=== PATIENT | male | born 1970 | race African-American/Black ===

== ENCOUNTER 2018-11-19 15:50 | Emergency (ER) | payer SELFPAY ==
[2018-11-19] MEDS ORDERED: LISI-362 PO (15:59)
[2018-11-19] MEDS ORDERED: cloNIDine HCL 0.1 MG TAB PO ONE ×2 (16:00→16:05)
--- NOTE | 2018-11-19 16:05 | ER Report ---
History and Physical Time Seen By MD: 16:04 Hx. of Stated Complaint: high blood pressure at school clinic. not taking lisinipril he is prescribed HPI/ROS CHIEF COMPLAINT: High blood pressure HISTORY OF PRESENT ILLNESS: 48-year-old male presents to emergency Department today with complaint of high blood pressure. Patient is currently on lisinopril for which she decided to stopping his medication approx imately a month ago and noticed blood pressures be 220/126 had taken multiple times to clinic on-camp[place] were is a assistant softball coach at the [employer] and determined to come here for emergent evaluation. Patient denies chest pain shortness of breath nausea vomiting diarrhea fever chills when asked why he stopped he said this didn't feel like taking it anymore. Patient has no additional complaints at this time REVIEW OF SYSTEMS: Respiratory: No cough, no dyspnea. Cardiovascular: No chest pain, no palpitations. Gastrointestinal: No vomiting, no abdominal pain. Musculoskeletal: No back pain. Remainder of the 14 system rev: Yes Allergies: Coded Allergies: No Known Drug Allergies (Unverified , 11/19/18) Home Meds Reported Medications Lisinopril (LISINOPRIL) 10 Mg Tablet, 10 MG PO QDAY, TAB 11/19/18 Reviewed Nurses Notes: Yes Old Medical Records Reviewed: Yes Constitutional Vital Sign - Last 24 Hours 11/19/18 11/19/18 15:54 17:33 Temp 97.7 Pulse 79 Resp 20 B/P (MAP) 206/129 155/111 (126) Pulse Ox 93 O2 Delivery Room Air Physical Exam General Appearance: [The patient is alert, has no immediate need for airway protection and no current signs of toxicity.] [ ] Eyes: Pupils equal and round no injection. Respiratory: Chest is non tender, lungs are clear to auscultation. Cardiac: regular rate and rhythm [ ] Gastrointestinal: Abdomen is soft and non tender, no masses, bowel sounds normal. Musculoskeletal: Neck: Neck is supple and non tender. Extremities have full range of motion and are non tender. Skin: No rashes or lesions. [ ] DIFFERENTIAL DIAGNOSIS: After history and physical exam differential diagnosis was considered for hypertension hypertensive urgency hypertensive emergency hypertensive crisis medical noncompliance Medical Decision Making Data Points Result Diagram: 11/19/18 1600 11/19/18 1600 Laboratory Hematology Test 11/19/18 16:00 Red Blood Count 5.03 M/uL (4.00-5.60) Mean Corpuscular Volume 91.5 fL (80.0-96.0) Mean Corpuscular Hemoglobin 31.1 pg (26.0-33.0) Mean Corpuscular Hemoglobin Concent 34.0 g/dL (32.0-36.0) Red Cell Distribution Width 13.9 % (11.5-14.5) Mean Platelet Volume 9.1 fL (7.2-11.1) Neutrophils (%) (Auto) 61.7 % (39.4-72.5) Lymphocytes (%) (Auto) 26.8 % (17.6-49.6) Monocytes (%) (Auto) 9.7 % (4.1-12.4) Eosinophils (%) (Auto) 0.9 % (0.4-6.7) Basophils (%) (Auto) 0.9 % (0.3-1.4) Nucleated RBC Relative Count (auto) 0.1 /100WBC Neutrophils # (Auto) 6.4 K/uL (2.0-7.4) Lymphocytes # (Auto) 2.8 K/uL (1.3-3.6) Monocytes # (Auto) 1.0 K/uL (0.3-1.0) Eosinophils # (Auto) 0.1 K/uL (0.0-0.5) Basophils # (Auto) 0.1 K/uL (0.0-0.1) Nucleated RBC Absolute Count (auto) 0.01 K/uL Sodium Level 144 mmol/L (137-145) Potassium Level 3.6 mmol/L (3.5-5.0) Chloride Level 101 mmol/L (98-107) Carbon Dioxide Level 30 mmol/L (22-30) Blood Urea Nitrogen 17 mg/dl (9-21) Creatinine 1.20 mg/dl (0.66-1.25) Glomerular Filtration Rate Calc > 60.0 Random Glucose 92 mg/dl (75-110) Calcium Level 9.5 mg/dl (8.4-10.2) Total Bilirubin 0.7 mg/dl (0.2-1.3) Aspartate Amino Transf (AST/SGOT) 46 U/L (0-35) Alanine Aminotransferase (ALT/SGPT) 46 U/L (0-56) Alkaline Phosphatase 90 U/L (0-126) Troponin I < 0.012 ng/ml Total Protein 8.4 g/dl (6.3-8.2) Albumin 4.7 g/dl (3.5-5.0) Chemistry Test 11/19/18 16:00 White Blood Count 10.3 k/uL (4.5-11.0) Red Blood Count 5.03 M/uL (4.00-5.60) Hemoglobin 15.7 g/dL (14.0-18.0) Hematocrit 46.1 % (42.0-52.0) Mean Corpuscular Volume 91.5 fL (80.0-96.0) Mean Corpuscular Hemoglobin 31.1 pg (26.0-33.0) Mean Corpuscular Hemoglobin Concent 34.0 g/dL (32.0-36.0) Red Cell Distribution Width 13.9 % (11.5-14.5) Platelet Count 168 K/uL (150-450) Mean Platelet Volume 9.1 fL (7.2-11.1) Neutrophils (%) (Auto) 61.7 % (39.4-72.5) Lymphocytes (%) (Auto) 26.8 % (17.6-49.6) Monocytes (%) (Auto) 9.7 % (4.1-12.4) Eosinophils (%) (Auto) 0.9 % (0.4-6.7) Basophils (%) (Auto) 0.9 % (0.3-1.4) Nucleated RBC Relative Count (auto) 0.1 /100WBC Neutrophils # (Auto) 6.4 K/uL (2.0-7.4) Lymphocytes # (Auto) 2.8 K/uL (1.3-3.6) Monocytes # (Auto) 1.0 K/uL (0.3-1.0) Eosinophils # (Auto) 0.1 K/uL (0.0-0.5) Basophils # (Auto) 0.1 K/uL (0.0-0.1) Nucleated RBC Absolute Count (auto) 0.01 K/uL Glomerular Filtration Rate Calc > 60.0 Calcium Level 9.5 mg/dl (8.4-10.2) Total Bilirubin 0.7 mg/dl (0.2-1.3) Aspartate Amino Transf (AST/SGOT) 46 U/L (0-35) Alanine Aminotransferase (ALT/SGPT) 46 U/L (0-56) Alkaline Phosphatase 90 U/L (0-126) Troponin I < 0.012 ng/ml Total Protein 8.4 g/dl (6.3-8.2) Albumin 4.7 g/dl (3.5-5.0) ED Course/Re-evaluation ED Course ED course 48-year-old male noncompliant with his medication for hypertension c omes in with a diastolic of 1:30 gave him a did not 0.2 of clonidine followed by 5 of Lopressor his diastolic is now 110 Baseline labs EKG and chest x-ray showed nothing acute or focal no end-stage organ damage hypertensive urgency will be the diagnosis was advised to continue his medications starting tomorrow and follow-up with primary care as directed Decision to Disposition Date: November 19, 2018 Decision to Disposition Time: 17:38 Depart Departure Latest Vital Signs Vital Signs Date Time Temp Pulse Resp B/P (MAP) Pulse Ox O2 Delivery O2 Flow Rate FiO2 11/19/18 17:33 155/111 (126) 11/19/18 15:54 97.7 79 20 93 Room Air Impression: Primary Impression: Hypertensive urgency Condition: Improved Disposition: HOME OR SELF-CARE Referrals: BRIDGETTE NOLAN MD 5 Days Patient Instructions: Hypertensive Crisis (DC) PATSY AHUJA MD November 19, 2018 16:05
[2018-11-19 16:09] LABS: PLATELET COUNT, AUTOMATED 168 K/uL (150-450)
--- NOTE | 2018-11-19 16:27 | EKG ---
FACILITY: [facility] - [place] PATIENT NAME: SEN CHOWDHURY : [id number] MR: [id number] V: [id number] EXAM DATE: ORDERING PHYSICIAN: PATSY AHUJA TECHNOLOGIST: Test Reason : Blood Pressure : / mmHG Vent. Rate : 066 BPM Atrial Rate : 066 BPM P-R Int : 184 ms QRS Dur : 092 ms QT Int : 440 ms P-R-T Axes : 041 028 252 degrees QTc Int : 461 ms Sinus rhythm Possible LVH ST and T wave abnormality, consider inferolateral ischemia Prolonged QT Abnormal ECG No previous ECGs available Confirmed by ROBERTA GAONA [id number] on 11/19/2018 9:29:15 PM Referred By: Confirmed By:ROBERTA GAONA
--- NOTE | 2018-11-19 16:39 | RADIOLOGY IMAGING REPORT ---
[place] [facility] [place] NAME[place] Nathan Mortensen : 1970 MR: [id number] V: [id number] EXAM DATE: ORDERING PHYSICIAN: PATSY AHUJA TECHNOLOGIST: Location: [facility] [place] Patient: Nathan Mortensen : 1970 Visit/Account:[id number] Date of Sevice: 11/19/2018 CHEST PA LAT HISTORY: High blood pressure. COMPARISON: None FINDINGS: Cardiomediastinal contours: The heart size is normal. Lungs and pleura: There is no finding of an infiltrate, lymphadenopathy or pleural effusion. Bones/soft tissues: There are no findings of a fracture. IMPRESSION: Normal chest x-ray without findings of acute disease. Report Dictated By: Alexis Dawn MD at 11/19/2018 4:34 PM Report E-Signed By: Alexis Dawn MD at 11/19/2018 4:35 PM WSN:[id number]
[2018-11-19] MEDS ORDERED: METOPROLOL TART 5 MG/5 ML VIAL IVP ONE (17:00)
[2018-11-19 17:45] VITALS: BP 161/103
== END 2018-11-19 17:51 | disposition home or self-care (01) ==
LOC: ER 15:59
DX: I16.0 Hypertensive urgency (principal)
CPT/HCPCS: 71046; 82040; 82247; 82310; 82374; 82435; 82565; 82947; 84075; 84132; 84155; 84295; 84450; 84460; 84484; 84520; 85025; 93005; 96374; 99284